=== PATIENT | female | born 1975 | race Caucasian/White ===

== ENCOUNTER → 2017-07-12 | Outpatient (CLI) | payer BC ==
[~2017-07-12] MED LIST: CIPROFLOXACIN500 MG PO; CLEOCIN150 MG PO; DIFLUCAN150 MG PO; Fioricet 325 MG1 TAB PO; MOBIC7.5 MG PO; NORCO 325 MG-51 TAB PO; PERIDEX 480 ML480 ML PO; TORADOL10 MG PO; ULTRAM50 MG PO; VICODIN 5/500 505 MG PO; VICODIN 500 MG-1 TAB PO; ZOFRAN4 MG PO
== END | disposition home or self-care (01) ==
LOC: CARD 11:27 → LAB 11:27
DX: Z51.81 Encounter for therapeutic drug level monitoring (principal); F90.0 Attention-deficit hyperactivity disorder, predominantly inattentive type; Z79.899 Other long term (current) drug therapy

== ENCOUNTER 2017-09-29 13:13 | Emergency (ER) | payer SELFPAY ==
[~2017-09-29] VITALS: Ht 165.1 cm; Wt 56.7 kg
[2017-09-29 13:55] LABS: BASO # 0.1 10*3/uL (0.0-0.1); BASO % 0.5 % (0.0-1.0); EOS % 0.3 % (1.0-4.0); HEMATOCRIT 46.7 % (37.0-47.0); HEMOGLOBIN 15.6 g/dl (12.0-16.0); LYMPH # 1.3 10*3/uL (1.3-4.4); LYMPH % 13.3 % (27.0-41.0); MEAN CELL VOLUME 97.3 fl (81.0-99.0); MEAN CORPUSCULAR HGB 32.5 pg (27.0-31.0); MEAN CORPUSCULAR HGB CONC 33.4 g/dl (33.0-37.0); MEAN PLATELET VOLUME 9.4 fl (9.6-12.3); MONO % 9.5 % (3.0-9.0); NEUT # 7.6 10*3/uL (2.3-7.9); NEUT % 76.1 % (47.0-73.0); PLATELET COUNT AUTOMATED 227 10*3/uL (130-400); RED CELL DISTRI WIDTH 12.9 % (0-14.5)
[2017-09-29 14:11] LABS: ALBUMIN 3.7 gm/dl (3.1-4.5); ALKALINE PHOSPHATASE 105 U/L (45-117); BUN 7 mg/dl (7-24); CHLORIDE 99 mmol/L (98-107); POTASSIUM 3.2 mmol/L (3.5-5.1); SGOT/AST 30 IU/L (3-35); SGPT/ALT 19 U/L (12-78); SODIUM 137 mmol/L (136-145); TOTAL PROTEIN 8.1 gm/dL (6.4-8.2)
[2017-09-29 14:18] LABS: BILIRUBIN NEGATIVE (NEGATIVE); BLOOD 3+ (NEGATIVE); CLARITY SL CLOUDY (CLEAR); COLOR YELLOW (YELLOW); GLUCOSE NEGATIVE (NEGATIVE); KETONE NEGATIVE (NEGATIVE); LEUKO ESTERASE 1+ (NEGATIVE); NITRITE NEGATIVE (NEGATIVE); UROBILINOGEN 0.2 E.U./dl (0.2-1.0)
[2017-09-29] MEDS ORDERED: PYRIDIUM200 M1 PO (14:40)
[2017-09-29] MEDS ORDERED: ZOFRAN4 MG PO (14:40)
[2017-09-29] MEDS ORDERED: Bactrim DS PO (14:40)
[2017-09-29 14:44] VITALS: BP 124/78
[2017-09-29 14:54] LABS: RBC 21-30 rbc/hpf (0-2)
[2017-09-29 14:56] LABS: BACTERIA TRACE; EPITHELIAL CELLS 31-40
[2017-09-29] MEDS ORDERED: DIFLUCAN150 MG PO (15:00)
== END 2017-09-29 14:55 | disposition home or self-care (01) ==
LOC: ED 13:13
PROVIDERS: Nurse Practitioner Family
DX: N39.0 Urinary tract infection, site not specified (principal); R03.0 Elevated blood-pressure reading, without diagnosis of hypertension; F17.200 Nicotine dependence, unspecified, uncomplicated; Z98.51 Tubal ligation status; Z88.0 Allergy status to penicillin